=== PATIENT | female | born 1965 | race Caucasian/White ===

== ENCOUNTER 2017-01-27 13:08 | Outpatient (CLI) | payer OTHER ==
[2014-10-10 12:05] VITALS: BP 116/72
[2017-01-27 13:14] LABS: APPEARANCE,URINE Clear (CLEAR); COLOR,URINE Yellow (YELLOW); OCCULT BLOOD,URINE Negative (NEGATIVE); PH URINE 5.5 (5.0 - 8.0); UROBILINOGEN URINE 0.2 Eu (0.2-1.0)
== END 2017-01-27 13:10 ==
LOC: LABRHC 13:08
PROVIDERS: ATTEND Family Medicine
DX: R30.0 Dysuria (principal)
CPT/HCPCS: 81002; 87086

== ENCOUNTER 2018-03-26 13:13 | Outpatient (CLI) | payer OTHER ==
[2014-10-10 12:05] VITALS: BP 116/72
[2018-03-26 13:32] LABS: BASOPHILS % 0.4 (0.0-1.5); MEAN CORPUSCULAR HEMOGLOBIN 29.3 pg (28.0-34.0); MONOCYTES % 5.3 % (0.0-11.0); NEUTROPHILS # 4.8 # k/uL (1.4-7.7)
[2018-03-26 13:43] LABS: eGFR (Non-African) > 60
== END 2018-03-26 13:30 ==
LOC: LAB 13:13
PROVIDERS: ATTEND Family Medicine
DX: Z00.00 Encounter for general adult medical examination without abnormal findings (principal)
CPT/HCPCS: 36415; 80053; 80061; 85025